=== PATIENT | female | born 1965 | race African-American/Black ===

== ENCOUNTER 2017-09-25 16:27 | Emergency (ER) | payer BC ==
[2017-09-25 16:55] VITALS: BP 128/91; PULSE 97; TEMP 98.3; BMI 29.7
--- NOTE | 2017-09-25 16:58 | PDOC ---
Rapid Medical Evaluation Time Seen by Provider: 09/25/17 16:51 Medical Evaluation: 09/25/17 16:51 Pt. presents with numbness to the L side of her head above her ear for two weeks after surgery. Pt. operated on by Dr. Terrazas for a lymph node to the L side of her neck on 09/10/17. States that she has sharp pins and needle like sensation to the head. Exam: NAD, ambulatory, pt reports numbness and pain to the left side of head. No rashes appreciated. Orders: Labs, head CT Pt. to proceed to main ED for further evaluation.
[2017-09-25 18:50] LABS: BASO % 0.5 % (0-2.0); EOS % 0.7 % (0-4.5); HEMATOCRIT 36.6 % (32.4-45.2); LYMPH % 46.2 % (8-40); MCH 29.2 pg (25.7-33.7); MCHC 32.8 g/dl (32.0-36.0); MEAN CELL VOLUME 89.1 fl (80-96); MEAN PLT VOLUME 8.7 fl (7.5-11.1); MONO % 6.3 % (3.8-10.2); NEUT % 46.3 % (42.8-82.8); PLATELET COUNT 240 K/MM3 (134-434); RBC 4.11 M/mm3 (3.60-5.2); RDW 13.2 % (11.6-15.6); WHITE BLOOD COUNT 7.6 K/mm3 (4.0-10.0)
[2017-09-25 18:56] LABS: HCG,QUALITATIVE URINE NEGATIVE; URINE APPEARANCE CLEAR; URINE BILIRUBIN NEGATIVE (<2.0 mg/dL); URINE COLOR LTYELLOW; URINE GLUCOSE (UA) NEGATIVE (NEGATIVE); URINE KETONE NEGATIVE (NEGATIVE); URINE LEUK ESTERASE TRACE (NEGATIVE); URINE NITRITE NEGATIVE (NEGATIVE); URINE PROTEIN NEGATIVE (NEGATIVE); URINE UROBILINOGEN NEGATIVE mg/dL (0.2-1.0)
[2017-09-25 18:59] LABS: EPI CELLS RARE /HPF (FEW); URINE MUCUS RARE
[2017-09-25 19:13] LABS: ALBUMIN 3.6 g/dl (3.4-5.0); ALK PHOS 85 U/L (45-117); ANION GAP 6 (8-16); BILIRUBIN,TOTAL 0.2 mg/dL (0.2-1.0); BLOOD UREA NITROGEN 9 mg/dL (7-18); CALCIUM 8.3 mg/dL (8.5-10.1); CHLORIDE 112 mmol/L (98-107); CO2 25 mmol/L (21-32); CREATININE 0.8 mg/dL (0.55-1.02); GLUCOSE,RANDOM 112 mg/dL (74-106); POTASSIUM 3.7 mmol/L (3.5-5.1); SGOT/AST 23 U/L (15-37); SGPT/ALT 23 U/L (12-78); SODIUM 143 mmol/L (136-145); TOT PROT 6.6 g/dl (6.4-8.2)
--- NOTE | 2017-09-25 21:30 | PDOC ---
*Physical Exam - Vital Signs Last Vital Signs Temp Pulse Resp BP Pulse Ox 98.3 F 97 H 18 128/91 100 09/25/17 16:52 09/25/17 16:52 09/25/17 16:52 09/25/17 16:52 09/25/17 16:52 ED Treatment Course - LABORATORY CBC & Chemistry Diagram: 09/25/17 18:32 09/25/17 18:32 - ADDITIONAL ORDERS Additional order review: Laboratory Results 09/25/17 09/25/17 18:36 18:32 Sodium 143 Potassium 3.7 Chloride 112 H Carbon Dioxide 25 Anion Gap 6 L BUN 9 Creatinine 0.8 Creat Clearance w eGFR > 60 Random Glucose 112 H Calcium 8.3 L Total Bilirubin 0.2 AST 23 ALT 23 Alkaline Phosphatase 85 Total Protein 6.6 Albumin 3.6 Urine Color Ltyellow Urine Appearance Clear Urine pH 5.0 Ur Specific [place] 1.015 Urine Protein Negative Urine Glucose (UA) Negative Urine Ketones Negative Urine Blood Negative Urine Nitrite Negative Urine Bilirubin Negative Urine Urobilinogen Negative Ur Leukocyte Esterase Trace Urine WBC (Auto) 3 Urine RBC (Auto) 2 Ur Epithelial Cells Rare Urine Mucus Rare Urine HCG, Qual Negative 09/25/17 18:32 RBC 4.11 MCV 89.1 MCHC 32.8 RDW 13.2 MPV 8.7 Neutrophils % 46.3 Lymphocytes % 46.2 H Monocytes % 6.3 Eosinophils % 0.7 Basophils % 0.5 Medical Decision Making - Medical Decision Making 09/25/17 21:29 Pt seen by Midlevel Provider under my direct supervision I agree with plan as outlined by Midlevel Provider *DC/Admit/Observation/Transfer Diagnosis at time of Disposition: Pain in head, Neuropathic pain - Discharge Dispostion Disposition: HOME Condition at time of disposition: Good - Referrals - Patient Instructions Printed Discharge Instructions: DI for Postoperative Pain, Neuropathic Pain Additional Instructions: Discharge Instructions: -Your labs and the CT scan of your head were normal -You are most likely experiencing neuropathic pain, which can be normal after surgery -You can take Tylenol or Motrin for pain -Follow up with your doctor within 2 weeks -Return to the ER with any worsening or concerning symptoms - Post Discharge Activity
--- NOTE | 2017-09-25 21:44 | PDOC ---
History of Present Illness - General Chief Complaint: Pain Stated Complaint: PAIN Time Seen by Provider: 09/25/17 16:51 History Source: Patient Exam Limitations: No Limitations - History of Present Illness Initial Comments: CHIEF COMPLAINT: 52 y/o afebrile female c/o left sided head numbness/tingling. HISTORY OF PRESENT ILLNESS: The patient had a lymph node removed from her neck on 09/10. She had follow up with Dr. Terrazas on 09/17 who told her she could have neck/head pain for 6 months. She states for a while the left side of her head was numb but now she feeling pins and needles in the same area. She denies all other symptoms. Vital signs on arrival are within normal limits. REVIEW OF SYSTEMS: GENERAL/CONSTITUTIONAL: No fever/chills. No weakness. No weight change. HEAD, EYES, EARS, NOSE AND THROAT: No change in vision. No ear pain or discharge. No sore throat. CARDIOVASCULAR: No chest pain or shortness of breath. RESPIRATORY: No cough, wheezing, or hemoptysis. GASTROINTESTINAL: No abd pain, nausea, vomiting, diarrhea. GENITOURINARY: No dysuria, frequency, or change in urination. MUSCULOSKELETAL: +left neck and head pins and needles. No joint or muscle swelling or pain. No back pain. SKIN: No rash or easy bruising. PHYSICAL EXAM: GENERAL: The patient is awake, alert, and fully oriented, in no acute distress. HEAD: Normal with no signs of trauma. NECK: Well healed surgical scar on left neck. ENT: Pupils equal, round and reactive to light, extraocular movements intact, sclera anicteric, conjunctiva clear. LUNGS: Clear to auscultation bilaterally. Normal excursion. No respiratory distress or use of accessory muscles. CV: RRR, S1/S2, no MRG. Cap refill < 2 sec. ABDOMEN: Soft, non-distended, non-tender even to deep palpation, no hepatomegaly or splenomegaly, no masses. EXTREMITIES: Normal range of motion, no edema. NEUROLOGICAL: Normal speech, normal gait. CN II-XII grossly intact. PSYCH: Normal mood, normal affect. SKIN: Warm, dry, normal turgor, no rashes or lesions noted. Past History - Past Medical History Allergies/Adverse Reactions: Allergies Allergy/AdvReac Type Severity Reaction Status Date / Time Sulfa (Sulfonamide Allergy Verified 09/25/17 16:51 Antibiotics) COPD: No DVT: No Other medical history: LUPUS - Surgical History Abdominal Surgery: Yes (LT OVARY) - Suicide/Smoking/Psychosocial Hx Smoking History: Never smoked Have you smoked in the past 12 months: No Information on smoking cessation initiated: No Hx Alcohol Use: No Drug/Substance Use Hx: No Substance Use Type: None *Physical Exam - Vital Signs Last Vital Signs Temp Pulse Resp BP Pulse Ox 98.3 F 97 H 18 128/91 100 09/25/17 16:52 09/25/17 16:52 09/25/17 16:52 09/25/17 16:52 09/25/17 16:52 ED Treatment Course - LABORATORY CBC & Chemistry Diagram: 09/25/17 18:32 09/25/17 18:32 - ADDITIONAL ORDERS Additional order review: Laboratory Results 09/25/17 09/25/17 18:36 18:32 Sodium 143 Potassium 3.7 Chloride 112 H Carbon Dioxide 25 Anion Gap 6 L BUN 9 Creatinine 0.8 Creat Clearance w eGFR > 60 Random Glucose 112 H Calcium 8.3 L Total Bilirubin 0.2 AST 23 ALT 23 Alkaline Phosphatase 85 Total Protein 6.6 Albumin 3.6 Urine Color Ltyellow Urine Appearance Clear Urine pH 5.0 Ur Specific [place] 1.015 Urine Protein Negative Urine Glucose (UA) Negative Urine Ketones Negative Urine Blood Negative Urine Nitrite Negative Urine Bilirubin Negative Urine Urobilinogen Negative Ur Leukocyte Esterase Trace Urine WBC (Auto) 3 Urine RBC (Auto) 2 Ur Epithelial Cells Rare Urine Mucus Rare Urine HCG, Qual Negative 09/25/17 18:32 RBC 4.11 MCV 89.1 MCHC 32.8 RDW 13.2 MPV 8.7 Neutrophils % 46.3 Lymphocytes % 46.2 H Monocytes % 6.3 Eosinophils % 0.7 Basophils % 0.5 Medical Decision Making - Medical Decision Making A/P: 52 y/o afebrile female with post surgical neuropathic pain. Labs, and CT scan of the head were ordered in triage and were all normal. Patient was given results. Informed her that this is all related to surgery and could take a while to normalize. Pt instructed to f/u with her doctor and Dr. Terrazas within 2 weeks and take Tylenol or motrin for pain if needed. The patient verbalizes understanding of all instructions, has no further questions and is awaiting discharge. *DC/Admit/Observation/Transfer Diagnosis at time of Disposition: Neuropathic pain Pain in head Qualifiers: Headache type: unspecified Headache chronicity pattern: unspecified pattern Intractability: not intractable Qualified Code(s): R51 - Headache - Discharge Dispostion Disposition: HOME Condition at time of disposition: Good - Referrals - Patient Instructions Printed Discharge Instructions: DI for Postoperative Pain, Neuropathic Pain Additional Instructions: Discharge Instructions: -Your labs and the CT scan of your head were normal -You are most likely experiencing neuropathic pain, which can be normal after surgery -You can take Tylenol or Motrin for pain -Follow up with your doctor within 2 weeks -Return to the ER with any worsening or concerning symptoms - Post Discharge Activity
== END 2017-09-25 22:25 | disposition home or self-care (01) ==
LOC: JER 16:27
DX: G89.18 Other acute postprocedural pain (principal); M79.2 Neuralgia and neuritis, unspecified
CPT/HCPCS: 36415; 70450-TC; 80053; 81003; 81015; 84703; 85025; 99281-25

== ENCOUNTER 2020-06-10 15:43 | Emergency (ER) | payer BC, OTHER ==
[2020-06-10 15:56] VITALS: BP 127/71; PULSE 88; TEMP 99.3; BMI 28.0
== END 2020-06-10 17:43 | disposition home or self-care (01) ==
LOC: FER 15:43
DX: R10.12 Left upper quadrant pain (principal)
CPT/HCPCS: 99281-25

== ENCOUNTER 2021-01-06 08:31 | Emergency (ER) | payer OTHER ==
[2021-01-06] MEDS ORDERED: SODIUM CHLORIDE 1,000 ML IV SCH (08:45)
[2021-01-06] MEDS ORDERED: ACETAMINOPHEN INJECTION 100 ML IVPB ONE (09:00)
[2021-01-06 09:03] VITALS: TEMP 98; BMI 27.7
[2021-01-06] MEDS ORDERED: ACETAMINOPHEN 1000 MG/100 ML VIAL (NON FORMULARY) IVPB ONE (09:05)
[2021-01-06] MEDS ORDERED: ETOMIDATE 40 MG/20 ML VIAL IVPUSH ONE (09:06)
[2021-01-06] MEDS ORDERED: ROCURONIUM BROMIDE 50 MG/5 ML VIAL IVPUSH ONE (09:06)
[2021-01-06] MEDS ORDERED: RAPID SEQUENCE INTUBATION KIT NR ONE (09:09)
[2021-01-06] MEDS ORDERED: PROPOFOL 1,000,000 MCG/100 ML VIAL ONE (09:10)
[2021-01-06] MEDS ORDERED: ROCURONIUM BROMIDE 100 MG/10 ML VIAL ONE (09:11)
[2021-01-06] MEDS ORDERED: levETIRAcetam 500 MG/5 ML INJECTION VIAL IVPB ONE ×2 (09:28→09:40)
[2021-01-06 09:33] LABS: BASO % 0.8 % (0-2.0); EOS % 0.3 % (0-4.5); HEMATOCRIT 38.8 % (32.4-45.2); LYMPH % 15.2 % (8-40); MCH 29.4 pg (25.7-33.7); MCHC 33.4 g/dl (32.0-36.0); MEAN PLT VOLUME 8.5 fl (7.5-11.1); MONO % 4.6 % (3.8-10.2); NEUT % 79.1 % (42.8-82.8); PLATELET COUNT 246 10^3/uL (134-434); RBC 4.41 M/mm3 (3.60-5.2); RDW 13.5 % (11.6-15.6); WHITE BLOOD COUNT 19.8 K/mm3 (4.0-10.0)
[2021-01-06 09:45] LABS: INR 0.88 (0.83-1.09); PROTHROMBIN TIME (PATIENT) 10.7 SEC (9.7-13.0)
[2021-01-06 09:47] LABS: ACTIVATED PTT 22.9 SECONDS (25.2-36.5)
[2021-01-06] MEDS ORDERED: niCARdipine HCL 25 MG/10 ML AMPUL IVPB ONE (09:53)
[2021-01-06 09:58] VITALS: PULSE 112
[2021-01-06 10:00] LABS: CALCIUM 8.7 mg/dL (8.5-10.1)
[2021-01-06] MEDS ORDERED: NICARDIPINE 25 MG in DEXTROSE 5%-WATER - 240 ML IVPB SCH (10:00)
[2021-01-06] MEDS ORDERED: PROPOFOL 1,000,000 MCG/100 ML VIAL IVPB SCH (10:00)
[2021-01-06 10:01] LABS: ALBUMIN 3.6 g/dl (3.4-5.0); BLOOD UREA NITROGEN 7.8 mg/dL (7-18)
[2021-01-06 10:04] LABS: CREATININE 0.8 mg/dL (0.55-1.3)
[2021-01-06 10:05] LABS: BILIRUBIN,TOTAL 0.3 mg/dL (0.2-1); TOT PROT 7.3 g/dl (6.4-8.2)
[2021-01-06 10:22] VITALS: BP 170/102
== END 2021-01-06 10:15 | disposition short-term general hospital (02) ==
LOC: JER 08:31
PROC: 0BH17EZ Insertion of Endotracheal Airway into Trachea, Via Natural or Artificial Opening (ICD-10-PCS; principal; 2021-01-06)
PROC: 3E033GC Introduction of Other Therapeutic Substance into Peripheral Vein, Percutaneous Approach (ICD-10-PCS; 2021-01-06)
DX: I60.9 Nontraumatic subarachnoid hemorrhage, unspecified (principal)
CPT/HCPCS: 36415; 70450-TC; 71045-TC-FY; 80053; 80061; 82550; 83036; 84484; 85025; 85610; 85730; 86850; 86900; 86901; 99291; 99292; C9803; J0131; U0003; U0005